=== PATIENT | female | born 1940 | race Caucasian/White ===

== ENCOUNTER 2016-12-23 07:49 | Emergency (ER) | payer MEDICARE, BC ==
[~2016-12-23] VITALS: Ht 162.6 cm; Wt 62.1 kg
[~2016-12-23 07:49] MED LIST: ATOR20TA PO; CELE200C PO; CHOL200024 PO; DIPH25TA41 PO; DULERA INH; ESCI10TA10 PO; ESTR1TAB15 PO; FENO135C PO; LISI5TAB7 PO; METF500T4 PO; MOME17SP NAS; MULT-516 PO; OMEP-110 PO; TEMA15CA PO
[2016-12-23 07:50] VITALS: BP 158/93
[2016-12-23] MEDS ORDERED: SODIUM CHLORIDE FLUSH 10ML SYR IVF ONE (08:30)
[2016-12-23] MEDS ORDERED: ONDANSETRON 2MG/ML, 2ML IVPush ONE (08:30)
[2016-12-23] MEDS ORDERED: SODIUM CHLORIDE 0.9% 1,000ML IVBOLUS ONE (08:30)
[2016-12-23] MEDS ORDERED: MORPHINE SULFATE 4 MG/ML, 1ML ONE ×2 (08:38→09:05)
[2016-12-23] MEDS ORDERED: ONDANSETRON 2MG/ML, 2ML ONE (08:38)
[2016-12-23] MEDS: MORPHINE SULFATE 4 MG/ML, 1ML IVPush PRN ×2 (08:39→09:08)
[2016-12-23 08:50] LABS: BLOOD UREA NITROGEN 27 mg/dL (7-18)
[2016-12-23 08:53] LABS: ASPARTATE AMINO TRANSFERASE 23 U/L (15-37)
== END 2016-12-23 11:05 | disposition home or self-care (01) ==
LOC: ED 10:55
DX: N20.2 Calculus of kidney with calculus of ureter (principal); I10 Essential (primary) hypertension; E11.9 Type 2 diabetes mellitus without complications; E78.00 Pure hypercholesterolemia, unspecified; J45.909 Unspecified asthma, uncomplicated; Z90.49 Acquired absence of other specified parts of digestive tract; Z90.710 Acquired absence of both cervix and uterus
CPT/HCPCS: 36415; 74177; 80053; 81001; 83690; 85025; 87086; 93005; 96361; 96374; 96375; 99285; J2405; J7030

== ENCOUNTER 2017-04-15 19:18 | Inpatient (IN) | payer MEDICARE, BC ==
[~2017-04-15] VITALS: Ht 162.6 cm; Wt 72.4 kg
[2017-04-15 19:31] LABS: HEMATOCRIT 48.3 % (34.6-47.8); WHITE BLOOD COUNT 7.3 x10^3/uL (3.4-10)
[2017-04-15] MEDS ORDERED: ALTEPLASE 1 MG/ML ONE (19:32)
[2017-04-15] MEDS ORDERED: ALTEPLASE IV ONE ×2 (20:00)
[2017-04-15] MEDS ORDERED: PLEASE ENTER HEIGHT AND WEIGHT MC SCH (20:00)
[2017-04-15] MEDS ORDERED: hydrALAzine 20 MG/ML, 1ML IVPush PRN (20:00)
[2017-04-15] MEDS: SODIUM CHLORIDE FLUSH 10ML SYR IVF SCH (21:00)
[2017-04-15] MEDS ORDERED: OMNIPAQUE 350 MG/ML, 100ML BOTTLE ONE (21:55)
[2017-04-15] MEDS: ATORVASTATIN 20 MG TABLET PO SCH (22:00)
[2017-04-15] MEDS: INSULIN ASPART 100 UNITS/ML, PEN SQ-INSULIN SCH (22:01)
[2017-04-16] MEDS: INSULIN ASPART 100 UNITS/ML, PEN SQ-INSULIN SCH ×4 (09:17→20:19)
[2017-04-16] MEDS: PANTOPRAZOLE 40 MG IV IVPush SCH (09:18)
[2017-04-16] MEDS: SODIUM CHLORIDE FLUSH 10ML SYR IVF SCH ×2 (09:18→20:14)
[2017-04-16 11:52] VITALS: BP 136/71
[2017-04-16] MEDS ORDERED: LOSA25TA2 PO (11:59)
[2017-04-16] MEDS: ACETAMINOPHEN 325 MG TABLET PO PRN ×2 (14:27→20:18)
[2017-04-16] MEDS: DULERA MC SCH (16:30)
[2017-04-16 19:00] VITALS: BP 145/70
[2017-04-16 20:00] VITALS: BP 155/62
[2017-04-16] MEDS: ATORVASTATIN 20 MG TABLET PO SCH (20:14)
[2017-04-16 21:00] VITALS: BP 135/50
[2017-04-16] MEDS: FLUTICASONE NASAL SPRAY 16GM NAS SCH (21:45)
[2017-04-16 22:00] VITALS: BP 130/60
[2017-04-17] MEDS: DULERA MC SCH ×4 (00:27→21:57)
[2017-04-17] MEDS: ACETAMINOPHEN 325 MG TABLET PO PRN ×2 (01:12→16:10)
[2017-04-17] MEDS ORDERED: MORPHINE SULFATE 4 MG/ML, 1ML ONE (03:10)
[2017-04-17] MEDS ORDERED: MORPHINE SULFATE 4 MG/ML, 1ML IVPush ONE (03:30)
[2017-04-17] MEDS ORDERED: MORPHINE SULFATE 4 MG/ML, 1ML IVPush PRN (03:30)
[2017-04-17 04:00] VITALS: BP 140/60
[2017-04-17 04:26] VITALS: BP 145/62
[2017-04-17 04:42] LABS: HEMATOCRIT 39.9 % (34.6-47.8); HEMOGLOBIN 13.4 g/dL (11.7-16.4); WHITE BLOOD COUNT 5.8 x10^3/uL (3.4-10)
[2017-04-17 04:53] LABS: BLOOD UREA NITROGEN 16 mg/dL (7-18)
[2017-04-17 08:00] VITALS: BP 129/54
[2017-04-17] MEDS: PANTOPRAZOLE 40 MG IV IVPush SCH (08:25)
[2017-04-17] MEDS: LOSARTAN 25MG TABLET PO SCH (08:25)
[2017-04-17] MEDS: SODIUM CHLORIDE FLUSH 10ML SYR IVF SCH ×2 (08:26→21:52)
[2017-04-17] MEDS: CITALOPRAM 20 MG TABLET PO SCH (08:26)
[2017-04-17] MEDS: CHOLECALCIFEROL 1,000 UNIT TABLET PO SCH (08:26)
[2017-04-17] MEDS: FENOFIBRATE 145 MG TABLET PO SCH (08:26)
[2017-04-17] MEDS: INSULIN ASPART 100 UNITS/ML, PEN SQ-INSULIN SCH ×4 (08:28→21:53)
[2017-04-17] MEDS ORDERED: ONDANSETRON 2MG/ML, 2ML IVPush PRN (08:30)
[2017-04-17] MEDS ORDERED: HYDROcodone/APAP 5/325 TABLET PO PRN (08:30)
[2017-04-17] MEDS: FLUTICASONE NASAL SPRAY 16GM NAS SCH ×2 (08:44→21:52)
[2017-04-17 13:45] VITALS: BP 119/70
[2017-04-17] MEDS: ATORVASTATIN 20 MG TABLET PO SCH (21:52)
[2017-04-17 23:48] VITALS: BP 137/77
[2017-04-18 04:05] VITALS: BP 129/69
[2017-04-18 05:47] LABS: HEMATOCRIT 39.6 % (34.6-47.8); HEMOGLOBIN 13.2 g/dL (11.7-16.4); WHITE BLOOD COUNT 6.8 x10^3/uL (3.4-10)
[2017-04-18 05:54] LABS: BLOOD UREA NITROGEN 16 mg/dL (7-18)
[2017-04-18] MEDS ORDERED: ASPIRIN 81 MG TABLET EC PO SCH (06:00)
[2017-04-18] MEDS: INSULIN ASPART 100 UNITS/ML, PEN SQ-INSULIN SCH ×3 (07:00→16:00)
[2017-04-18 07:18] VITALS: BP 135/70
[2017-04-18] MEDS: PANTOPRAZOLE 40 MG IV IVPush SCH (07:30)
[2017-04-18] MEDS: DULERA MC SCH ×2 (08:30→16:30)
[2017-04-18] MEDS: SODIUM CHLORIDE FLUSH 10ML SYR IVF SCH (09:00)
[2017-04-18] MEDS: CITALOPRAM 20 MG TABLET PO SCH (09:08)
[2017-04-18] MEDS: FENOFIBRATE 145 MG TABLET PO SCH (09:08)
[2017-04-18] MEDS: LOSARTAN 25MG TABLET PO SCH (09:08)
[2017-04-18] MEDS: CHOLECALCIFEROL 1,000 UNIT TABLET PO SCH (09:08)
[2017-04-18] MEDS: FLUTICASONE NASAL SPRAY 16GM NAS SCH (09:09)
[2017-04-18] MEDS: ACETAMINOPHEN 325 MG TABLET PO PRN (09:09)
[2017-04-18] MEDS ORDERED: ASPI-621 PO (17:54)
[2017-04-18] MEDS ORDERED: ZONI100C36 PO (17:54)
== END 2017-04-18 18:57 | disposition home health service (06) | DRG 62 ==
LOC: ED 20:11 → EDIP 20:30 → CCU 04-16 07:28 → 4WST 04-17 13:30
PROVIDERS: ADMIT Internal Medicine; ATTEND Hospitalist
DX: I63.511 Cerebral infarction due to unspecified occlusion or stenosis of right middle cerebral artery (principal); R41.4 Neurologic neglect syndrome; E88.81 Metabolic syndrome and other insulin resistance; G81.94 Hemiplegia, unspecified affecting left nondominant side; I07.1 Rheumatic tricuspid insufficiency; K21.9 Gastro-esophageal reflux disease without esophagitis; E11.9 Type 2 diabetes mellitus without complications; E78.00 Pure hypercholesterolemia, unspecified; I10 Essential (primary) hypertension; I35.1 Nonrheumatic aortic (valve) insufficiency; I65.23 Occlusion and stenosis of bilateral carotid arteries; J45.909 Unspecified asthma, uncomplicated; N39.3 Stress incontinence (female) (male); N99.3 Prolapse of vaginal vault after hysterectomy; Z79.82 Long term (current) use of aspirin; Z87.442 Personal history of urinary calculi; R47.81 Slurred speech; R25.8 Other abnormal involuntary movements
CPT/HCPCS: 36415; 51702; 70450; 70496; 70498; 70551; 80047; 80048; 80061; 82962; 83735; 84443; 85025; 85610; 85730; 87081; 93005; 93306; 96365; 96375; 99292; J1815; J2405; J2997; Q9967; C9113; J0360

== ENCOUNTER 2017-06-10 05:40 | Inpatient (IN) | payer MEDICARE, BC ==
[~2017-06-10] VITALS: Ht 162.6 cm; Wt 58.7 kg
[~2017-06-10 05:40] MED LIST changes: +ASPI-496 PO; +ASPI-621 PO; +DIPH25CA62 PO; +LOSA25TA2 PO; +LOSA25TA5 PO; +MOME13HF2 INH; +ZONI100C36 PO
[2017-06-10] MEDS ORDERED: SODIUM CHLORIDE 0.9% 1,000 ML IV SCH (06:09)
[2017-06-10] MEDS ORDERED: BUPIVACAINE/PF 0.5% ONE (06:23)
[2017-06-10] MEDS ORDERED: PAPAVERINE 30 MG/ML, 2ML ONE (06:24)
[2017-06-10] MEDS ORDERED: LIDOCAINE/PF 1%, 30ML ONE (06:24)
[2017-06-10] MEDS ORDERED: PROTAMINE SULFATE 10 MG/ML, 5ML ONE (06:24)
[2017-06-10] MEDS ORDERED: THROMBIN 20,000 UNIT VIAL TP ONE (06:25)
[2017-06-10] MEDS ORDERED: BACITRACIN 50,000 UNIT ONE (06:25)
[2017-06-10] MEDS ORDERED: EPINEPHRINE 1 MG/ML, 1ML ONE (06:25)
[2017-06-10] MEDS ORDERED: FENTANYL PF 100 MCG/2ML ONE ×3 (06:50→10:47)
[2017-06-10] MEDS ORDERED: PROPOFOL 10 MG/ML, 20ML ONE (06:50)
[2017-06-10] MEDS ORDERED: ROCURONIUM 10 MG/ML,10ML ONE (06:51)
[2017-06-10] MEDS ORDERED: HEPARIN 1,000 UNITS/ML, 10ML ONE (06:52)
[2017-06-10] MEDS ORDERED: CEFAZOLIN 1,000 MG ONE ×4 (06:53)
[2017-06-10] MEDS ORDERED: PHENYLEPHRINE 10 MG/ML ONE ×2 (06:54→08:06)
[2017-06-10] MEDS ORDERED: GLYCOPYRROLATE 0.4 MG/2 ML, 2ML ONE (06:58)
[2017-06-10] MEDS ORDERED: NEOSTIGMINE 1 MG/ML, 10ML ONE (06:58)
[2017-06-10] MEDS ORDERED: hydrALAzine 20 MG/ML, 1ML IV PRN ×2 (07:30→13:30)
[2017-06-10] MEDS ORDERED: HYDROmorphone 1 MG/ML, 1ML IV PRN (07:30)
[2017-06-10] MEDS ORDERED: PROMETHAZINE 25 MG/ML, 1ML IV PRN (07:30)
[2017-06-10] MEDS ORDERED: ACETAMINOPHEN 325 MG TABLET PO PRN (07:30)
[2017-06-10] MEDS ORDERED: ALBUTEROL SULFATE 2.5 MG/3 ML NPPB PRN (07:30)
[2017-06-10] MEDS ORDERED: OXYcodone 5 MG/5 ML ORAL.SOL UDC PO PRN (07:30)
[2017-06-10] MEDS ORDERED: MEPERIDINE/PF 25MG/0.5ML IVPush PRN (07:30)
[2017-06-10] MEDS ORDERED: FENTANYL PF 100 MCG/2ML IV PRN (07:30)
[2017-06-10] MEDS ORDERED: LABETALOL 5MG/ML, 20ML IV PRN (07:30)
[2017-06-10] MEDS ORDERED: ONDANSETRON 2MG/ML, 2ML IVPush PRN (07:30)
[2017-06-10] MEDS ORDERED: EPHEDRINE 50 MG/ML, 1ML ONE (07:43)
[2017-06-10] MEDS ORDERED: ONDANSETRON 2MG/ML, 2ML ONE (08:10)
[2017-06-10] MEDS ORDERED: ASPIRIN 325 MG TABLET EC PO ONE (10:00)
[2017-06-10] MEDS ORDERED: OXYcodone 5 MG/5 ML ORAL.SOL UDC ONE (10:01)
[2017-06-10] MEDS ORDERED: ASPIRIN 325 MG TABLET ONE (10:01)
[2017-06-10] MEDS ORDERED: DIPHENHYDRAMINE 50 MG/ML, 1ML ONE (10:01)
[2017-06-10] MEDS ORDERED: DIPHENHYDRAMINE 50 MG/ML, 1ML IVPush ONE (10:30)
[2017-06-10] MEDS ORDERED: morphine SULFATE 10 MG/ML, 1ML IV PRN (13:00)
[2017-06-10] MEDS ORDERED: ENTER SLIDING SCALE INSULIN IF ORDERED XX PRN (13:00)
[2017-06-10] MEDS: LACTATED RINGERS 1,000 ML IV SCH (13:00)
[2017-06-10] MEDS ORDERED: ONDANSETRON 2MG/ML, 2ML IV PRN (13:30)
[2017-06-10] MEDS ORDERED: LABETALOL 5MG/ML, 20ML IVPush PRN (13:30)
[2017-06-10] MEDS ORDERED: ACETAMINOPHEN 325 MG SUPP PR PRN (13:30)
[2017-06-10] MEDS: INSULIN REGULAR, HUMAN 100 UNIT/ML 3ML VIAL LOW DOSE SS SQ-INSULIN SCH ×2 (16:00→22:06)
[2017-06-10] MEDS: CEFAZOLIN PMX 2GM/100ML 100 ML IVPB SCH (17:16)
[2017-06-10] MEDS: HYDROcodone/APAP 5/325 TABLET PO PRN (18:42)
[2017-06-10 19:54] VITALS: BP 104/59
[2017-06-10] MEDS ORDERED: ATORVASTATIN 20 MG TABLET PO SCH (21:00)
[2017-06-10] MEDS: DULERA INH SCH (21:33)
[2017-06-10] MEDS ORDERED: DIPHENHYDRAMINE 25 MG CAPSULE PO SCH (22:00)
[2017-06-10] MEDS: SODIUM CHLORIDE FLUSH 10ML SYR IVF SCH (22:01)
[2017-06-11 00:38] VITALS: BP 121/74
[2017-06-11] MEDS: LACTATED RINGERS 1,000 ML IV SCH ×2 (01:28→10:14)
[2017-06-11] MEDS: CEFAZOLIN PMX 2GM/100ML 100 ML IVPB SCH (01:28)
[2017-06-11] MEDS ORDERED: ACETAMINOPHEN 325 MG TABLET PO PRN ×2 (03:30→11:00)
[2017-06-11 04:04] VITALS: BP 142/72
[2017-06-11 07:00] VITALS: BP 128/78
[2017-06-11] MEDS ORDERED: OMEPRAZOLE 20 MG CAPSULE.DR PO SCH (07:30)
[2017-06-11] MEDS: INSULIN REGULAR, HUMAN 100 UNIT/ML 3ML VIAL LOW DOSE SS SQ-INSULIN SCH ×2 (07:42→10:51)
[2017-06-11] MEDS: HYDROcodone/APAP 5/325 TABLET PO PRN (08:22)
[2017-06-11] MEDS: DULERA INH SCH (08:23)
[2017-06-11] MEDS: SODIUM CHLORIDE FLUSH 10ML SYR IVF SCH (08:23)
[2017-06-11] MEDS ORDERED: CHOLECALCIFEROL 1,000 UNIT TABLET PO SCH (09:00)
[2017-06-11] MEDS ORDERED: CITALOPRAM 20 MG TABLET PO SCH (09:00)
[2017-06-11] MEDS ORDERED: DIPHENHYDRAMINE 25 MG CAPSULE PO SCH ×2 (09:00→21:00)
[2017-06-11] MEDS ORDERED: FENOFIBRATE 145 MG TABLET PO SCH (09:00)
[2017-06-11] MEDS ORDERED: ASPIRIN 325 MG TABLET EC PO SCH (09:00)
[2017-06-11] MEDS ORDERED: LOSARTAN 25MG TABLET PO SCH (09:00)
[2017-06-11] MEDS ORDERED: MULTIVITAMIN 1 TABLET PO SCH (09:00)
[2017-06-11 11:56] VITALS: BP 111/58
[2017-06-11] MEDS ORDERED: HYDR-3240 PO (13:26)
[2017-06-11] MEDS ORDERED: SENN1TAB7 PO (13:27)
== END 2017-06-11 13:57 | disposition home or self-care (01) | DRG 38 ==
LOC: ORIP 05:40 → 4NOR 12:17
PROVIDERS: ADMIT Surgery; ATTEND Surgery
PROC: 03UJ0JZ Supplement Left Common Carotid Artery with Synthetic Substitute, Open Approach (ICD-10-PCS; 2017-06-10)
PROC: 03CL0ZZ Extirpation of Matter from Left Internal Carotid Artery, Open Approach (ICD-10-PCS; 2017-06-10)
PROC: 03UL0JZ Supplement Left Internal Carotid Artery with Synthetic Substitute, Open Approach (ICD-10-PCS; 2017-06-10)
PROC: 03CJ0Z6 (ICD-10-PCS; principal; 2017-06-10 07:30)
DX: I65.22 Occlusion and stenosis of left carotid artery (principal); I69.954 Hemiplegia and hemiparesis following unspecified cerebrovascular disease affecting left non-dominant side; E11.9 Type 2 diabetes mellitus without complications; E78.5 Hyperlipidemia, unspecified; I10 Essential (primary) hypertension; K21.9 Gastro-esophageal reflux disease without esophagitis; Z86.73 Personal history of transient ischemic attack (TIA), and cerebral infarction without residual deficits; Z90.49 Acquired absence of other specified parts of digestive tract; Z90.710 Acquired absence of both cervix and uterus; Z88.8 Allergy status to other drugs, medicaments and biological substances
CPT/HCPCS: 36415; 82962; 86850; 86900; C1729; J0171; J0690; J1644; J2405; J2704; J2710; J2720; J3010; J3490; C1768; J1200; J2270; J2370; J2440; J7030; J7120; Q0163

== ENCOUNTER → 2017-10-29 | Outpatient (CLI) | payer MEDICARE, BC ==
[~2017-10-29] MED LIST changes: +HYDR-3240 PO; +SENN1TAB7 PO
== END | disposition home or self-care (01) ==
LOC: CVU 15:01
PROVIDERS: ATTEND Surgery
DX: I65.23 Occlusion and stenosis of bilateral carotid arteries (principal); I10 Essential (primary) hypertension; E11.9 Type 2 diabetes mellitus without complications; Z86.73 Personal history of transient ischemic attack (TIA), and cerebral infarction without residual deficits; Z91.81 History of falling
CPT/HCPCS: 93880

== ENCOUNTER → 2017-12-12 | Outpatient (CLI) | payer MEDICARE, BC ==
[~2017-12-12] MED LIST changes: +REGADENOSON 0.4 MG/5 ML SYRINGE ONE
== END | disposition home or self-care (01) ==
LOC: CFH 12:33
PROVIDERS: ATTEND Internal Medicine Cardiovascular Disease
DX: I65.23 Occlusion and stenosis of bilateral carotid arteries (principal)
CPT/HCPCS: 78452; 93017; A9502; J2785

== ENCOUNTER 2019-06-03 14:45 | Inpatient (IN) | payer MEDICARE, BC ==
[~2019-06-03] VITALS: Ht 162.6 cm; Wt 58.6 kg
[~2019-06-03 14:45] MED LIST changes: -ASPI-621 PO; +ASPI81TA45 PO; +LOSA25TA25 PO; -LOSA25TA5 PO; +METF500T17 PO; -METF500T4 PO; -REGADENOSON 0.4 MG/5 ML SYRINGE ONE; +SENN-177 PO; -SENN1TAB7 PO
[2019-06-03] MEDS ORDERED: ROSU20TA29 PO (15:17)
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
--- NOTE | 2019-06-03 15:53 | NUR ---
ASH NICK AT BEDSIDE FOR EVAL.
[2019-06-03] MEDS ORDERED: SODIUM CHLORIDE FLUSH 10ML SYR IVF ONE (16:00)
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
[2019-06-03 16:36] LABS: BASOPHILS # (AUTO) 0.08 x10^3/uL (0-0.1); BASOPHILS % (AUTO) 1 % (0-1); EOSINOPHILS # (AUTO) 0.34 x10^3/uL (0-0.4); EOSINOPHILS % (AUTO) 6 % (1-7); LYMPHOCYTES # (AUTO) 2.08 x10^3/uL (1-3.4); LYMPHOCYTES % (AUTO) 37 % (22-44); MD NO; MEAN CORPUSCULAR HEMOGLOBIN 32.4 pg (27.0-34.8); MEAN CORPUSCULAR HGB CONC 32.5 g/dL (32.4-35.8); MEAN CORPUSCULAR VOLUME 99.6 fL (80-100); MEAN PLATELET VOLUME 7.7 fL (7.4-10.4); MONOCYTES # (AUTO) 0.47 x10^3/uL (0.2-0.8); MONOCYTES % (AUTO) 8 % (2-9); NEUTROPHILS # (AUTO) 2.61 x10^3/uL (1.8-6.8); NEUTROPHILS % (AUTO) 47 % (42-75); PLATELET COUNT 204 x10^3/uL (130-400); RED BLOOD COUNT 3.96 x10^6/uL (3.82-5.3); RED CELL DISTRIBUTION WIDTH 13.7 % (9.6-15.2)
[2019-06-03 16:38] LABS: MICROSCOPIC AUTO
[2019-06-03 16:44] LABS: CULTURE INDICATED? YES
[2019-06-03 16:46] LABS: ALBUMIN 3.6 g/dL (3.4-5.0); ANION GAP 5 mmol/L (5-15); CALCIUM 9.1 mg/dL (8.5-10.1); CHLORIDE 110 mmol/L (98-107); CREATININE 0.83 mg/dL (0.55-1.02)
[2019-06-03 16:50] LABS: TROPONIN I < 0.015 ng/mL (0.000-0.045)
--- NOTE | 2019-06-03 16:55 | NUR ---
DR NICK AT BEDSIDE, CT RESULTS, POC FOR ADMIT TO ICU REVIEWED WITH PT AND SPOUSE AND QUESTIONS ANSWERED.
--- NOTE | 2019-06-03 17:09 | NUR ---
DR SIMS AT BEDSIDE. ASSESSMENT REVIEWED.
[2019-06-03 17:27] LABS: PROTHROMBIN TIME 10.5 Seconds (9.6-11.5)
--- NOTE | 2019-06-03 18:07 | NUR ---
Report called to [facility]. Pt ready for transport. Aware.
[2019-06-03] MEDS ORDERED: INSTRUCTION SEE COMMENTS XX ONE (18:30)
[2019-06-03] MEDS ORDERED: ENALAPRILAT 1.25 MG/ML, 2ML IV PRN (18:30)
[2019-06-03] MEDS ORDERED: DOCUSATE 100 MG CAPSULE PO PRN (18:30)
[2019-06-03] MEDS ORDERED: ACETAMINOPHEN 325 MG TABLET PO PRN (18:30)
[2019-06-03] MEDS ORDERED: POLYETHYLENE GLYCOL 17 GM PACKET PO PRN (18:30)
[2019-06-03] MEDS ORDERED: BISACODYL 10 MG SUPP PR PRN (18:30)
[2019-06-03] MEDS ORDERED: FLUTICASONE NASAL SPRAY 16GM NAS PRN (19:00)
[2019-06-03 19:10] LABS: HEMOGLOBIN A1C 5.9 % (4.2-6.3)
[2019-06-03] MEDS ORDERED: OMNIPAQUE 350 MG/ML, 100ML BOTTLE ONE (19:57)
[2019-06-03] MEDS: ATORVASTATIN 80 MG TABLET PO SCH (20:13)
[2019-06-03] MEDS: ALBUTEROL SULFATE 2.5 MG/3 ML NPPB SCH (20:21)
[2019-06-03] MEDS: BUDESONIDE 0.5 MG/2 ML INHA NPPB SCH (20:21)
[2019-06-03] MEDS ORDERED: metFORMIN 500 MG TABLET PO SCH (21:00)
[2019-06-04] MEDS: ALBUTEROL SULFATE 2.5 MG/3 ML NPPB SCH ×4 (02:48→20:22)
[2019-06-04 05:01] LABS: BASOPHILS # (AUTO) 0.08 x10^3/uL (0-0.1); BASOPHILS % (AUTO) 1 % (0-1); EOSINOPHILS # (AUTO) 0.45 x10^3/uL (0-0.4); EOSINOPHILS % (AUTO) 8 % (1-7); LYMPHOCYTES # (AUTO) 2.08 x10^3/uL (1-3.4); LYMPHOCYTES % (AUTO) 35 % (22-44); MD NO; MEAN CORPUSCULAR HEMOGLOBIN 32.7 pg (27.0-34.8); MEAN CORPUSCULAR HGB CONC 32.8 g/dL (32.4-35.8); MEAN CORPUSCULAR VOLUME 99.7 fL (80-100); MEAN PLATELET VOLUME 7.6 fL (7.4-10.4); MONOCYTES # (AUTO) 0.56 x10^3/uL (0.2-0.8); MONOCYTES % (AUTO) 9 % (2-9); NEUTROPHILS # (AUTO) 2.82 x10^3/uL (1.8-6.8); NEUTROPHILS % (AUTO) 47 % (42-75); PLATELET COUNT 209 x10^3/uL (130-400); RED BLOOD COUNT 4.02 x10^6/uL (3.82-5.3); RED CELL DISTRIBUTION WIDTH 13.8 % (9.6-15.2)
[2019-06-04 05:11] LABS: ALBUMIN 3.5 g/dL (3.4-5.0); ANION GAP 7 mmol/L (5-15); CHLORIDE 111 mmol/L (98-107)
[2019-06-04 05:15] LABS: ALANINE AMINOTRANSFERASE 30 U/L (12-78); ALKALINE PHOSPHATASE 42 U/L (45-117); BILIRUBIN,TOTAL 0.5 mg/dL (0.2-1.0); CHOL/HDL RATIO 2.3; CHOLESTEROL, TOTAL 142 mg/dL (140-239); CREATININE 0.82 mg/dL (0.55-1.02); HDL CHOL % 43 % (28-40); HDL CHOLESTEROL (DIRECT) 61 mg/dL (40-60); LDL CHOLESTEROL,CALCULATED 41 mg/dL (54-169); LDL/HDL RATIO 0.7 (0.5-3.0); TOTAL PROTEIN 6.6 g/dL (6.4-8.2); TRIGLYCERIDES 199 mg/dL (50-200); VLDL CHOLESTEROL 40 mg/dL (0-25)
[2019-06-04] MEDS: OMEPRAZOLE 20 MG CAPSULE.DR PO SCH (08:59)
[2019-06-04] MEDS ORDERED: LOSARTAN 25MG TABLET PO SCH (09:00)
[2019-06-04] MEDS: CHOLECALCIFEROL 1,000 UNIT TABLET PO SCH (09:01)
[2019-06-04] MEDS: MULTIVITAMIN 1 TABLET PO SCH (09:11)
[2019-06-04] MEDS: BUDESONIDE 0.5 MG/2 ML INHA NPPB SCH ×2 (09:55→20:22)
[2019-06-04] MEDS: INSULIN LISPRO 100 UNITS/ML, PEN SQ-INSULIN SCH ×3 (11:00→20:55)
[2019-06-04] MEDS: ATORVASTATIN 80 MG TABLET PO SCH (20:53)
[2019-06-04 23:33] VITALS: BP 145/82
[2019-06-05 01:02] VITALS: BP 133/81
[2019-06-05] MEDS: ALBUTEROL SULFATE 2.5 MG/3 ML NPPB SCH (03:00)
[2019-06-05] MEDS: INSULIN LISPRO 100 UNITS/ML, PEN SQ-INSULIN SCH ×4 (07:00→19:45)
[2019-06-05 07:55] VITALS: BP 177/94
[2019-06-05] MEDS: ENALAPRILAT 1.25 MG/ML, 1ML IV PRN (08:48)
[2019-06-05] MEDS: ONDANSETRON 2MG/ML, 2ML IVPush PRN ×2 (08:48→19:52)
[2019-06-05] MEDS: LOSARTAN 50MG TABLET PO SCH ×2 (09:00→10:10)
[2019-06-05] MEDS: AMLODIPINE 5 MG TABLET PO SCH ×3 (09:00→19:51)
[2019-06-05] MEDS: MULTIVITAMIN 1 TABLET PO SCH (10:09)
[2019-06-05] MEDS: OMEPRAZOLE 20 MG CAPSULE.DR PO SCH (10:09)
[2019-06-05] MEDS: CHOLECALCIFEROL 1,000 UNIT TABLET PO SCH (10:09)
[2019-06-05 10:10] VITALS: BP 97/54
[2019-06-05 12:21] VITALS: BP 118/72
[2019-06-05 19:51] VITALS: BP 121/81
[2019-06-05] MEDS: ATORVASTATIN 80 MG TABLET PO SCH (19:51)
[2019-06-05] MEDS ORDERED: PROMETHAZINE 25 MG/ML, 1ML IM PRN (21:00)
[2019-06-06 00:43] VITALS: BP 138/78
[2019-06-06 05:39] VITALS: BP 153/74
[2019-06-06] MEDS: ENALAPRILAT 1.25 MG/ML, 1ML IV PRN (05:43)
[2019-06-06] MEDS: INSULIN LISPRO 100 UNITS/ML, PEN SQ-INSULIN SCH ×4 (07:00→20:26)
[2019-06-06 07:48] VITALS: BP 128/71
[2019-06-06] MEDS: CHOLECALCIFEROL 1,000 UNIT TABLET PO SCH (08:41)
[2019-06-06] MEDS: MULTIVITAMIN 1 TABLET PO SCH (08:42)
[2019-06-06] MEDS: AMLODIPINE 5 MG TABLET PO SCH ×2 (08:42→20:10)
[2019-06-06] MEDS: LOSARTAN 50MG TABLET PO SCH (08:42)
[2019-06-06] MEDS: OMEPRAZOLE 20 MG CAPSULE.DR PO SCH (08:42)
[2019-06-06] MEDS: SODIUM CHLORIDE 0.9% 1,000 ML IV SCH ×2 (10:21→20:12)
[2019-06-06] MEDS: MECLIZINE CHEWABLE 25 MG TAB PO SCH ×3 (10:21→20:10)
[2019-06-06 13:34] VITALS: BP 98/61
[2019-06-06 20:09] VITALS: BP 156/88
[2019-06-06] MEDS: ATORVASTATIN 80 MG TABLET PO SCH (20:10)
[2019-06-07 01:23] VITALS: BP 128/70
[2019-06-07 04:55] VITALS: BP 125/70
[2019-06-07] MEDS: SODIUM CHLORIDE 0.9% 1,000 ML IV SCH (06:44)
[2019-06-07] MEDS: INSULIN LISPRO 100 UNITS/ML, PEN SQ-INSULIN SCH ×2 (07:00→11:00)
[2019-06-07 08:35] VITALS: BP 134/77
[2019-06-07] MEDS: CHOLECALCIFEROL 1,000 UNIT TABLET PO SCH (09:40)
[2019-06-07] MEDS: MULTIVITAMIN 1 TABLET PO SCH (09:40)
[2019-06-07] MEDS: LOSARTAN 50MG TABLET PO SCH (09:40)
[2019-06-07] MEDS: OMEPRAZOLE 20 MG CAPSULE.DR PO SCH (09:40)
[2019-06-07] MEDS: AMLODIPINE 5 MG TABLET PO SCH (09:40)
[2019-06-07] MEDS: MECLIZINE CHEWABLE 25 MG TAB PO SCH (11:05)
[2019-06-07] MEDS ORDERED: MECL-85 PO (13:49)
[2019-06-07] MEDS ORDERED: AMLO-150 PO (13:49)
[2019-06-07] MEDS ORDERED: LOSA50TA2 PO (13:49)
[2019-06-07 13:50] VITALS: BP 123/71
== END 2019-06-07 16:23 | disposition home health service (06) | DRG 64 ==
LOC: ED 17:10 → EDIP 17:16 → ED 17:31 → CCU 18:26 → 4WST 06-04 23:24
PROVIDERS: ADMIT Internal Medicine; ATTEND Internal Medicine
DX: I61.1 Nontraumatic intracerebral hemorrhage in hemisphere, cortical (principal); G93.6 Cerebral edema; I69.320 Aphasia following cerebral infarction; Z88.8 Allergy status to other drugs, medicaments and biological substances; E11.51 Type 2 diabetes mellitus with diabetic peripheral angiopathy without gangrene; E78.00 Pure hypercholesterolemia, unspecified; E78.5 Hyperlipidemia, unspecified; I10 Essential (primary) hypertension; J45.909 Unspecified asthma, uncomplicated; K21.9 Gastro-esophageal reflux disease without esophagitis; R47.02 Dysphasia; Z79.82 Long term (current) use of aspirin; Z79.84 Long term (current) use of oral hypoglycemic drugs; Z79.899 Other long term (current) drug therapy; Z82.0 Family history of epilepsy and other diseases of the nervous system; Z82.49 Family history of ischemic heart disease and other diseases of the circulatory system; Z83.3 Family history of diabetes mellitus; Z90.710 Acquired absence of both cervix and uterus; S00.83XA Contusion of other part of head, initial encounter; X58.XXXA Exposure to other specified factors, initial encounter; Y93.89 Activity, other specified; Y92.89 Other specified places as the place of occurrence of the external cause; Y99.8 Other external cause status
CPT/HCPCS: 36415; 70450; 70496; 70498; 70551; 80048; 80053; 80061; 81001; 82040; 82962; 83036; 84484; 85025; 85610; 87081; 87086; 93005; 93306; 94640; 99291; G0378; J2405; J2550; J7613; J7626; Q9967; 92523-GN; J7030